=== PATIENT | male | born 1970 | race Caucasian/White ===

== ENCOUNTER 2018-02-11 20:42 | Observation (INO) | payer MEDICAID ==
[2018-02-11] MEDS ORDERED: Diltiazem 25 MG/5 ML SDV IVPUSH ONE ×2 (21:00→21:41)
[2018-02-11] MEDS ORDERED: Diltiazem 100 MG in Sodium Chloride 0.9% 100 ML IV SCH (22:30)
[2018-02-11] MEDS ORDERED: Sodium Chloride 0.9% 1,000 ML IV SCH (22:30)
--- NOTE | 2018-02-12 00:41 | ER ---
DATE OF SERVICE: 02/11/2018 HISTORY OF PRESENT ILLNESS: A 47-year-old male who comes in with his with complaints of chest discomfort and a feeling that his heart is beating really fast. The patient states he was just at home. He was not doing anything when this happened. He has not had any recent falls or injuries, and he denies any previous history of a similar nature. The patient tells me that discomfort that he had resolved about the time he got to the emergency room. He denies any type of chest pain or pressure at this time. The patient does not feel nauseated. He has not been sweaty. He states he has been healthy. No history of heart disease. He is not on any current medications. He is not allergic to any medications. OBJECTIVE: GENERAL APPEARANCE: The patient is awake and alert, in no obvious distress. VITAL SIGNS: Reviewed. The patient's blood pressure initially is 106/69, pulse varies anywhere from 112 to 165, looking at heart monitor, and the patient is in atrial fibrillation. An EKG was also obtained about this time showing a ventricular rate of 158 with atrial fibrillation. HEENT: Oral mucous membranes moist. Tonsils not enlarged or injected. Pharynx not inflamed. NECK: Supple. LUNGS: Clear. CARDIAC: Heart sounds distinct. He has obvious irregular rhythm. I do not hear any murmurs. S1, S2 are present. ABDOMEN: Soft, protuberant, nontender to palpation. Bowel sounds are present. SKIN: Warm and dry. INITIAL TREATMENT: Cardizem 20 mg was given IV in a bolus form. This did bring the patient's pulse down to around 110, but still vary between 110 and 135 to 140. After 30 minutes, he was given a second dose of Cardizem 20 mg and this brought his pulse down into the upper 80s to 120 range. The patient is asymptomatic and has been since he has been in our facility. Blood pressure did initially go up, we got a reading of 151/70, but then it came back down again, the last reading was 136/70. He is afebrile. LABS: Include a CBC which is normal. Comprehensive metabolic panel is also unremarkable. Troponin is negative. DIAGNOSIS: Atrial fibrillation, new onset with rapid ventricular response. We did get the rate down to around 100 with two doses of Cardizem. TREATMENT PLAN: I did consult with Cardiology talking to Dr. Major in [place]. The patient will be admitted to our facility tonight. We will start him on a Cardizem drip 5 mg an hour initially. We can increase this if needed. In the morning, we will see how the patient is doing. If he is stable, we will switch him over to Cardizem CD 120 mg. The patient will have IV fluids going overnight as well. Per Dr. Major's recommendation, we will not start any anticoagulation medication tonight, and I will be in touch with Cardiology again tomorrow. Depending on how the patient is doing, a cardiac consult would be a reasonable option soon. APOLINAR/VISHNU /[id number] MANA
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
[2018-02-12 10:55] VITALS: BP 109/65
--- NOTE | 2018-02-13 01:04 | DISCH ---
HISTORY OF PRESENT ILLNESS: This 47-year-old male was admitted to the ER last evening for atrial fibrillation, new onset. He was given Cardizem 20 mg in bolus form IV twice in the ER. This brought his ventricular rate down to around 100. I did consult with Dr. Major at the time of admission, and the patient was started on a Cardizem drip at 5 mg an hour. He did well during the night. His rhythm converted to normal sinus rhythm about 4 a.m., and the Cardizem drip was stopped at that time. The patient states he feels fine this morning. He is asymptomatic and is wondering if he can go home. OBJECTIVE: GENERAL APPEARANCE: The patient is awake and alert. No obvious distress. VITAL SIGNS: Reviewed. They are normal. CARDIAC: On physical exam; heart sounds distinct. S1-S2 present. Regular rate today. No murmurs noted. LUNGS: Clear. SKIN: Warm and dry. DIAGNOSIS: Atrial fibrillation, new onset, converted overnight. TREATMENT PLAN: Per Dr. Major's orders last evening, the patient will be started on Cardizem CD 120 mg daily p.o. I will give him a week supply. Arrangements also will be made for the patient to follow up with Dr. Major for further evaluation. The patient and his agree with this treatment plan and have no further questions. CRS/MODL /[id number]
--- NOTE | 2018-02-14 10:55 | CR ---
DATE OF SERVICE: 02/11/18 CLINICAL DATA: chest pain - A-Fib AP PORTABLE CHEST: The heart size is normal. The lungs are clear. The exam is otherwise unremarkable. IMPRESSION: No evidence of acute intrathoracic disease. [id number] [facility]
== END 2018-02-12 10:38 | disposition home or self-care (01) ==
LOC: LB.ED 20:42 → INTOOBSV 22:20 → LB.MS 22:20 → LB.ED 22:20
PROVIDERS: ADMIT Physician Assistant; ATTEND Physician Assistant
DX: I48.91 Unspecified atrial fibrillation (principal)
CPT/HCPCS: 36415; 71045; 80053; 84484; 85025; 93005; 96374; 96376; 99285-25; J3490; J7030; J7040

== ENCOUNTER 2024-04-30 14:00 | Emergency (ER) | payer MEDICAID ==
[2024-04-30 15:21] VITALS: BP 156/89; PULSE 58
[2024-04-30] MEDS: Lidocaine 1% with EPINEPHrine 1:100,000 20 ML MDV INJECT ONE (15:40)
[2024-04-30] MEDS: Bacitracin Oint 1 GM U/D Packet TOP ONE (15:40)
== END 2024-04-30 15:33 | disposition home or self-care (01) ==
LOC: LB.ED 14:00
DX: S01.01XA Laceration without foreign body of scalp, initial encounter (principal); W22.8XXA Striking against or struck by other objects, initial encounter
CPT/HCPCS: 12001; 99282; 99283